=== PATIENT | male | born 1960 | race Caucasian/White ===

== ENCOUNTER → 2022-09-17 | Day surgery (SDC) | payer MEDICARE ==
[~2022-09-17] MED LIST: LIDOCAINE HCL 1% 30ML VIAL (10MG/ML) ONE
== END | disposition home or self-care (01) ==
LOC: RADANGIO 07:57
PROVIDERS: ATTEND Podiatrist Foot & Ankle Surgery
DX: M86.8X7 Other osteomyelitis, ankle and foot (principal); Z79.899 Other long term (current) drug therapy
CPT/HCPCS: 36573; C1725; C1751; J3490; Z7610